=== PATIENT | female | born 1990 | race Caucasian/White ===

== ENCOUNTER 2017-07-20 16:22 | Inpatient (IN) | payer OTHER ==
[2017-07-20] MEDS ORDERED: Methylergonovine 0.2 MG/1 ML Amp IM PRN (17:12)
[2017-07-20] MEDS ORDERED: Misoprostol 200 MCG Tab PO PRN (17:12)
[2017-07-20] MEDS ORDERED: Carboprost Tromethamine 250 MCG/1 ML Amp IM PRN (17:12)
[2017-07-20] MEDS ORDERED: Nalbuphine 10 MG/1 ML Vial IVPUSH PRN (17:12)
[2017-07-20] MEDS ORDERED: Sodium Chloride 0.9% 2.5 ML Syringe FLUSH PRN (17:12)
[2017-07-20] MEDS ORDERED: Lidocaine 1% 50 ML MDV INJECT PRN (17:12)
[2017-07-20] MEDS ORDERED: Butorphanol 1 MG/ML SDV IVPUSH PRN (17:12)
[2017-07-20] MEDS ORDERED: Water For Irrigation,Sterile 1,000 ML Container IRR PRN (17:12)
[2017-07-20] MEDS ORDERED: Sodium Chloride 0.9% 10 ML Syringe FLUSH PRN (17:12)
[2017-07-20] MEDS ORDERED: Lactated Ringers 1,000 ML IV SCH (17:15)
[2017-07-20] MEDS ORDERED: Oxytocin/0.9 % Sodium Chloride 30 UNIT/500 ML BAG IV SCH (17:15)
[2017-07-20] MEDS ORDERED: Witch Hazel Medicated Pads 40/Jar TOP PRN (18:54)
[2017-07-20] MEDS ORDERED: oxyCODONE 5 MG Tab PO PRN (18:54)
[2017-07-20] MEDS ORDERED: Bisacodyl 10 MG Supp RECTAL PRN (18:54)
[2017-07-20] MEDS ORDERED: Ibuprofen 400 MG Tab PO PRN (18:54)
[2017-07-20] MEDS ORDERED: Lanolin 100% Cream 7 GM Tube TOP PRN (18:54)
[2017-07-20] MEDS ORDERED: Hydrocortisone 2.5% Crm 30 GM Tube TOP PRN (18:54)
[2017-07-20] MEDS ORDERED: Acetaminophen 500 MG Tab PO PRN ×2 (18:54)
[2017-07-20] MEDS ORDERED: Benzocaine/Menthol 20%-0.5% Spray 78 GM Cannister TOP PRN (18:54)
[2017-07-20] MEDS ORDERED: Docusate Sodium 100 MG Cap PO PRN (18:54)
[2017-07-20] MEDS: Ibuprofen 800 MG Tab PO PRN (19:49)
--- NOTE | 2017-07-21 00:21 | OR ---
SURGEON: Tracey Florentino M.D. DATE OF PROCEDURE: 07/20/2017 PREOPERATIVE DIAGNOSES: 1. 39 and 1 week intrauterine . 2. Active labor. POSTOPERATIVE DIAGNOSES: 1. 39 and 1 week intrauterine . 2. Active labor. PROCEDURE: Spontaneous vaginal delivery, second-degree midline laceration repaired. ESTIMATED BLOOD LOSS: 300 mL. ANESTHESIA: Pudendal. COMPLICATIONS: None. FINDINGS: Viable male, scores 9 at 1 minute and 9 at 5 minutes, weight is pending. Spontaneous delivery, intact placenta, 3-vessel cord. DISPOSITION: in nursery. Mom in LDRP, stable. PROCEDURE DETAILS: Fatimah is a 26-year-old, G3 P-1-0-1-1, at 39 and 1 weeks' gestational age, who presents on the late afternoon of 07/20/2017 having regular contractions since 1:00 p.m. On initial examination, she was found to be 6 cm. She had been 2 cm earlier in the clinic today. She was admitted by Dr. Quan. Group B beta strep is negative. She is on suppressive Valtrex for history of genital herpes and bright light exam per Dr. Quan was negative. The patient denies prodromal symptoms. The patient continued to labor and progressed fairly rapidly to complete, 100% effaced, and 0 station. She had spontaneous rupture of membranes. Clear fluid was returned. She had requested epidural; however, the team is tied up with a C- section at this time. Therefore, I was called for delivery. Upon my arrival, I discussed with the patient the option of using a pudendal block. She would like to proceed with this. Risks of the procedure have been discussed with her including infection and bleeding. Therefore, the ischial spines were palpated on either side. A 10 mL of 1% lidocaine was drawn up. Pudendal tray was opened and the catheter was placed over the right potential notch. Needle was introduced and infiltrated the region with 5 mL of 1% lidocaine and a similar fashion was performed on the patient's left side. Also prepped the midline perineum with approximately 3 mL of 1% lidocaine. The patient became more comfortable and began pushing efforts. She was able to push with the next approximately 3 contractions, delivered to a +4 station, delivered 's head atraumatically. The shoulders did not initially easily deliver, so the head of the bed was flattened. The patient was urged to push vigorously and was able to deliver the anterior shoulder, posterior shoulder, and remainder of body. Infant's oropharynx and nares were bulb suctioned. Cord was clamped x2 and cut. was handed off to his mother with attending nursing staff at her side. Cord arterial, cord venous, cord blood sampling was obtained. Light suprapubic pressure was applied while the placenta was delivered spontaneously intact. Vigorous fundal uterine massage was then applied while 30 units of Pitocin was delivered in 500 mL of IV fluids. Upon inspection of cervix, vaginal sidewalls, and perineum, there was a deep second- degree midline laceration noted. This was repaired using a 3-0 Vicryl in layered closure. Initially, the deeper subcutaneous tissue was reapproximated with [id number] sutures followed by repair of the remaining second-degree laceration in the usual fashion. The patient tolerated this well. Hemostasis appears evident. Uterus remains firm. Sponge count and needle count were correct. The patient remained in LDRP, in nursery. MARIA TERESA / JARETH /[id number]
[2017-07-21] MEDS: Ibuprofen 800 MG Tab PO PRN ×4 (01:52→20:26)
[2017-07-21] MEDS ORDERED: Levothyroxine 88 MCG Tab PO SCH (07:00)
--- NOTE | 2017-07-21 09:37 | PCM.PNPP ---
- General Info Date of Service: 07/21/17 Functional Status: Reports: Pain Controlled, Tolerating Diet, Ambulating, Urinating - Review of Systems General: Denies: Fever, Fatigue HEENT: Denies: Headaches Pulmonary: Denies: Shortness of Breath, Pleuritic Chest Pain Cardiovascular: Denies: Chest Pain, Palpitations, Dyspnea on Exertion Gastrointestinal: Denies: Abdominal Pain Genitourinary: Denies: Dysuria, Incontinence, Retention Psychiatric: Denies: Depression, Mood Lability, Anxiety - General Info Date of Service: 07/21/17 - Patient Data Vital Signs - Most Recent: Last Vital Signs Temp 36.7 C 07/21/17 08:00 Pulse 93 07/21/17 08:00 Resp 18 07/21/17 08:00 BP 115/66 07/21/17 08:00 Pulse Ox 97 07/21/17 08:00 Weight - Most Recent: 145 lb Lab Results - Last 24 Hours: Laboratory Results - last 24 hr 07/20/17 07/20/17 07/21/17 Range/Units 17:38 17:38 06:01 WBC 9.73 (4.0-11.0) K/uL RBC 4.10 L (4.30-5.90) M/uL Hgb 12.6 10.4 L (12.0-16.0) g/dL Hct 37.1 31.1 L (36.0-46.0) % MCV 90.5 (80.0-98.0) fL MCH 30.7 (27.0-32.0) pg MCHC 34.0 (31.0-37.0) g/dL RDW Std Deviation 43.5 (28.0-62.0) fl RDW Coeff of Paulie 14 (11.0-15.0) % Plt Count 200 (150-400) K/uL MPV 10.50 (7.40-12.00) fL Nucleated RBC % 0.0 /100WBC Nucleated RBCs # 0 K/uL Blood Type A POSITIVE Antibody Screen NEGATIVE Med Orders - Current: Current Medications Acetaminophen (Tylenol Extra Strength) 500 mg PO Q4H PRN PRN Reason: Pain Acetaminophen (Tylenol Extra Strength) 1,000 mg PO Q4H PRN PRN Reason: Pain Benzocaine/Menthol (Dermoplast Pain Relief 20%-0.5% [place]) 78 gm TOP ASDIRECTED PRN PRN Reason: Perineal Comfort Measure Last Admin: 07/20/17 19:51 Dose: 1 canister Bisacodyl (Dulcolax) 10 mg RECTAL .ONCE PRN PRN Reason: Constipation Carboprost Tromethamine (Hemabate Ds) 250 mcg IM ASDIRECTED PRN PRN Reason: Post Hemorrhage Docusate Sodium (Colace) 100 mg PO BID PRN PRN Reason: Constipation Last Admin: 07/21/17 07:52 Dose: 100 mg Emollient Ointment (Lansinoh Hpa) 0 gm TOP ASDIRECTED PRN PRN Reason: Sore Nipples Last Admin: 07/20/17 19:51 Dose: 1 applic Hydrocortisone (Proctozone-Hc 2.5% Crm) 0 gm TOP 6XDAY PRN PRN Reason: Itching Lactated Ringer's (Ringers, Lactated) 1,000 mls @ 150 mls/hr IV ASDIRECTED [facility] Last Admin: 07/20/17 17:40 Dose: 999 mls/hr Oxytocin/Sodium Chloride (Oxytocin 30 Unit/500 Ml-Ns) 30 unit in 500 mls @ 999 mls/hr IV TITRATE [facility] Last Admin: 07/20/17 18:33 Dose: 999 mls/hr Ibuprofen (Motrin) 400 mg PO Q4H PRN PRN Reason: Pain Ibuprofen (Motrin) 800 mg PO Q6H PRN PRN Reason: Pain Last Admin: 07/21/17 07:52 Dose: 800 mg Levothyroxine Sodium (Synthroid) 88 mcg PO DAILY@0700 [facility] Last Admin: 07/21/17 08:13 Dose: 88 mcg Lidocaine HCl (Xylocaine 1%) 50 ml INJECT .ONCE PRN PRN Reason: Laceration repair Methylergonovine Maleate (Methergine) 0.2 mg IM ASDIRECTED PRN PRN Reason: Post Hemorrhage Misoprostol (Cytotec) 200 mcg PO .ONCE PRN PRN Reason: Post Hemorrhage Oxycodone HCl (Oxycodone) 5 mg PO Q2H PRN PRN Reason: Pain Sodium Chloride (Saline Flush) 10 ml FLUSH ASDIRECTED PRN PRN Reason: Keep Vein Open Sodium Chloride (Saline Flush) 2.5 ml FLUSH ASDIRECTED PRN PRN Reason: Keep Vein Open [place] (Tucks) 1 pad TOP ASDIRECTED PRN PRN Reason: comfort care Last Admin: 07/20/17 19:50 Dose: 1 canister Discontinued Medications Butorphanol Tartrate (Stadol) 1 mg IVPUSH Q1H PRN PRN Reason: Pain Nalbuphine HCl (Nubain) 10 mg IVPUSH Q1H PRN PRN Reason: Pain (severe 7-10) Sterile Water (Sterile Water For Irrigation) 1,000 ml IRR ASDIRECTED PRN PRN Reason: delivery Last Admin: 07/20/17 18:57 Dose: 1,000 ml - Interaction Infant Disposition, : [place] in Room with Family Feeding: Breastfed ; Nursed Well Support Person: , Mother - Recovery Exam Fundal Tone: Firm Fundal Level: At Umbilicus Fundal Placement: Midline Lochia Amount: Scant Lochia Color: Rubra/Red Perineum Description: Other (see below) Other Perinuem Description: 2nd degree laceration Episiotomy/Laceration: Approximated Bladder Status: Voiding Urinary Elimination: Voided - Exam General: Alert, Oriented Lungs: Clear to Auscultation, Normal Respiratory Effort Cardiovascular: Regular Rate, Regular Rhythm GI/Abdominal Exam: Normal Bowel Sounds, Soft Extremities: Normal Inspection, No Pedal Edema Skin: Warm Psy/Mental Status: Alert, Normal Affect, Normal Mood - Problem List & Annotations (1) Vaginal delivery SNOMED Code(s): 519268792 Code(s): O80 - ENCOUNTER FOR FULL-TERM UNCOMPLICATED DELIVERY Status: Acute Current Visit: Yes - Problem List Review Problem List Initiated/Reviewed/Updated: Yes - My Orders Last 24 Hours: My Active Orders 07/20/17 17:12 Patient Status [ADT] Routine Heart Tones [RC] CONTINUOUS Non Stress Test [RC] PER UNIT ROUTINE May Shower [RC] ASDIRECTED Notify Provider [RC] PRN Up ad Ghislaine [RC] ASDIRECTED Vaginal Exam [RC] PRN Vital Signs [RC] PER UNIT ROUTINE Carboprost Tromethamine [Hemabate DS] 250 mcg IM ASDIRECTED PRN Lidocaine 1% [Xylocaine 1%] 50 ml INJECT .ONCE PRN Methylergonovine [Methergine] 0.2 mg IM ASDIRECTED PRN Misoprostol [Cytotec] 200 mcg PO .ONCE PRN Sodium Chloride 0.9% [Saline Flush] 10 ml FLUSH ASDIRECTED PRN Sodium Chloride 0.9% [Saline Flush] 2.5 ml FLUSH ASDIRECTED PRN Peripheral IV Insertion Adult [OM.PC] Routine Resuscitation Status Routine 07/20/17 17:15 Lactated Ringers [Ringers, Lactated] 1,000 ml IV ASDIRECTED Oxytocin/0.9 % Sodium Chloride [Oxytocin 30 Unit/500 ML-NS] 30 unit in 500 ml IV TITRATE 07/21/17 07:00 Levothyroxine [Synthroid] 88 mcg PO DAILY@0700 - Assessment Assessment:: PPD# 1 s/p , stable and afebrile Clinically stable for discharge today - Plan Plan:: Discharge instructions reviewed Nothing in the vagina for 6 weeks Continue PNV Bleeding and infection precautions reviewed depression/blues S/S reviewed Follow up in 6 weeks
== END 2017-07-21 21:40 | disposition home or self-care (01) | DRG 775 ==
LOC: MW.OBCHECK 16:22 → MW.OB 16:24 → UNDOADMOB 16:57 → MW.OB 16:57 → MW.OBCHECK 16:57 → MW.OB 17:12 → OBSVTOIN 18:32 → MW.OB 21:11
PROVIDERS: ADMIT Obstetrics & Gynecology; ATTEND Obstetrics & Gynecology
PROC: 10E0XZZ Delivery of Products of Conception, External Approach (ICD-10-PCS; principal; 2017-07-20)
DX: O70.1 Second degree perineal laceration during delivery (principal); Z3A.39 39 weeks gestation of pregnancy; Z37.0 Single live birth
CPT/HCPCS: 36415; 59025; 59409; 85014; 85018; 85027; 86850; 86900; 86901; A9270-GY; J2590; J7120